=== PATIENT | female | born 1990 | race Native Hawaiian/Other Pacific Islander ===

== ENCOUNTER 2017-09-10 11:25 | Emergency (ER) | payer OTHER ==
[~2017-09-10] VITALS: Ht 167.6 cm; Wt 81.6 kg
[2017-09-10 11:48] LABS: BASOPHILS % (AUTO) 0 % (0-10); EOSINOPHILS # (AUTO) 0.2 10^3/uL (0.0-0.3); EOSINOPHILS % (AUTO) 3 % (0-10); HEMATOCRIT 40 % (35-52); LYMPHOCYTES # (AUTO) 1.9 X 10^3 (1.0-4.0); LYMPHOCYTES % (AUTO) 26 % (12-44); MEAN CORPUSCULAR HEMOGLOBIN 31 PG (25-34); MEAN CORPUSCULAR HGB CONC 35 G/DL (32-36); MEAN CORPUSCULAR VOLUME 88 FL (80-99); MEAN PLATELET VOLUME 10.3 FL (7.4-10.4); MONOCYTES # (AUTO) 0.7 X 10^3 (0.0-1.0); MONOCYTES % (AUTO) 9 % (0-12); NEUTROPHILS # (AUTO) 4.6 X 10^3 (1.8-7.8); NEUTROPHILS % (AUTO) 63 % (42-75); PLATELET COUNT 281 10^3/uL (130-400); RED BLOOD COUNT 4.48 10^6/uL (4.35-5.85); RED CELL DISTRIBUTION WIDTH 13.1 % (10.0-14.5); WHITE BLOOD COUNT 7.3 10^3/uL (4.3-11.0)
--- NOTE | 2017-09-10 12:06 | ED Neurological Problem ---
General Chief Complaint: Neurological Problems Stated Complaint: ELEV BP/CONFUSION LIPS NUMB Nursing Triage Note: PT AMB TO ROOM #10 W/O DIFFICULTY. A&OX4. CO DIZZINESS, SHAKINESS, LETHARGY, HEADACHE, AND TINGLING OF THE LIPS. PT REPORTS SHE WAS AT WORK WHEN SHE BEGAN TO FEEL LIGHT HEADED AND DIZZY. PT REPORTS HER FRIEND CLAIMED SHE HAD JARBLED SPEECH. REPORTS HEADACHE AND UNABLET TO THINK CLEARLY. DENIES LOC AND INJURY. PERRLA. PUPILS 2MM. REPORTS SHE HAS NOT EATEN ANYTHING THIS MORNING AND HAS ONLY DRANK COFFEE FOR FLUIDS. Nursing Sepsis Screen: No Definite Risk Source: patient, family Exam Limitations: no limitations History of Present Illness Date Seen by Provider: Sep 10, 2017 Time Seen by Provider: 11:50 Initial Comments Patient is a 26-year-old female who presents to the emergency room accompanied by significant other routes of dizziness, confusion, headache, and tingling of her lips. She reports that she was at work this morning she started to feel confused, having episodes of blurred vision, and nausea and vomiting. She called her significant other to come take her from work to the emergency room and her significant other reports that she did not appear to be thinking clearly and her words were jumbled. On arrival to the emergency room the only symptoms that she is having is a headache that she describes as a burning feeling. She reports history of headaches but denies any migraine symptoms. She denies chest pain, shortness of breath episodes of anxiety. Associated Symptoms: confusion, nausea/vomiting, paresthesia, vision changes Allergies and Home Medications Patient Home Medication List Home Medication List Reviewed: Yes Review of Systems Constitutional: see HPI; No chills, No diaphoresis, No fever Eyes: See HPI, Blurred Vision Ears, Nose, Mouth, Throat: see HPI (tinkling and lips.) Gastrointestinal: see HPI, nausea, vomiting Psychiatric/Neurological: See HPI, Headache, Weakness All Other Systems Reviewed Negative Unless Noted: Yes Past Lqdfwao-Modsoj-Fulrmn Hx Past Med/Social Hx: Reviewed Nursing Past Med/Soc Hx Patient Social History Alcohol Use: Denies Use Recreational Drug Use: No Smoking Status: Current Everyday Smoker Type Used: Cigarettes 2nd Hand Smoke Exposure: No Recent Foreign Travel: No Contact w/Someone Who Travel: No Recent Infectious Disease Expo: No Recent Hopitalizations: No (DENIES MEDICAL HX.) Physical Abuse: No Sexual Abuse: No Past Medical History Surgeries: No Respiratory: No Cardiac: No Neurological: No Genitourinary: No Gastrointestinal: No Musculoskeletal: No Endocrine: No HEENT: No Cancer: No Psychosocial: No Nursing Suicide Risk Score: 0 Integumentary: No Blood Disorders: No Family Medical History Reviewed Nursing Family Hx Physical Exam Vital Signs Vital Signs - First Documented 09/10/17 11:27 Temp 97.8 Pulse 81 Resp 18 B/P (MAP) 112/81 (91) Pulse Ox 99 O2 Delivery Room Air Capillary Refill : Less Than 3 Seconds Height, Weight, BMI Height: 5'6.00" Weight: 180lbs. oz. 81.210869bp; BMI Method:Stated General Appearance: WD/WN, no apparent distress Neck: non-tender, full range of motion, supple, normal inspection Respiratory: chest non-tender, lungs clear, normal breath sounds, no respiratory distress, no accessory muscle use Cardiovascular: regular rate, rhythm, no edema, no gallop, no JVD, no murmur Gastrointestinal: normal bowel sounds, non tender, soft, no organomegaly, no pulsatile mass Extremities: normal range of motion, non-tender, normal inspection, no pedal edema, no calf tenderness Neurologic/Psychiatric: alert, normal mood/affect, oriented x 3 Crainal Nerves: normal hearing, normal speech, PERRL Coordination/Gait: normal finger to nose, normal gait Motor/Sensory: no motor deficit, no sensory deficit, no pronator drift Skin: normal color, warm/dry stroke scale zero. Progress/Results/Core Measures Results/Orders Lab Results Laboratory Tests Test 09/10/17 11:36 Range/Units White Blood Count 7.3 4.3-11.0 10^3/uL Red Blood Count 4.48 4.35-5.85 10^6/uL Hemoglobin 14.0 11.5-16.0 G/DL Hematocrit 40 35-52 % Mean Corpuscular Volume 88 80-99 FL Mean Corpuscular Hemoglobin 31 25-34 PG Mean Corpuscular Hemoglobin Concent 35 32-36 G/DL Red Cell Distribution Width 13.1 10.0-14.5 % Platelet Count 281 130-400 10^3/uL Mean Platelet Volume 10.3 7.4-10.4 FL Neutrophils (%) (Auto) 63 42-75 % Lymphocytes (%) (Auto) 26 12-44 % Monocytes (%) (Auto) 9 0-12 % Eosinophils (%) (Auto) 3 0-10 % Basophils (%) (Auto) 0 0-10 % Neutrophils # (Auto) 4.6 1.8-7.8 X 10^3 Lymphocytes # (Auto) 1.9 1.0-4.0 X 10^3 Monocytes # (Auto) 0.7 0.0-1.0 X 10^3 Eosinophils # (Auto) 0.2 0.0-0.3 10^3/uL Basophils # (Auto) 0.0 0.0-0.1 10^3/uL D-Dimer 0.30 0.00-0.49 UG/ML Sodium Level 137 135-145 MMOL/L Potassium Level 3.8 3.6-5.0 MMOL/L Chloride Level 107 98-107 MMOL/L Carbon Dioxide Level 22 21-32 MMOL/L Anion Gap 8 5-14 MMOL/L Blood Urea Nitrogen 7 7-18 MG/DL Creatinine 0.75 0.60-1.30 MG/DL Estimat Glomerular Filtration Rate > 60 BUN/Creatinine Ratio 9 Glucose Level 95 70-105 MG/DL Calcium Level 9.5 8.5-10.1 MG/DL Magnesium Level 2.2 1.8-2.4 MG/DL Total Bilirubin 0.9 0.1-1.0 MG/DL Aspartate Amino Transf (AST/SGOT) 17 5-34 U/L Alanine Aminotransferase (ALT/SGPT) 19 0-55 U/L Alkaline Phosphatase 83 40-136 U/L Myoglobin 28.9 10.0-92.0 NG/ML Troponin I < 0.30 <0.30 NG/ML Total Protein 6.9 6.4-8.2 GM/DL Albumin 4.4 3.2-4.5 GM/DL My Orders Orders - JOSE MANZO Cbc With Automated Diff (09/10/17 11:40) Magnesium (09/10/17 11:40) Ekg Tracing (09/10/17 11:40) Cardiac Profile 1 (09/10/17 11:40) Comprehensive Metabolic Panel (09/10/17 11:40) Myoglobin Serum (09/10/17 11:40) O2 (09/10/17 11:40) Monitor-Rhythm Ecg Trace Only (09/10/17 11:40) Saline Lock/Iv-Start (09/10/17 11:40) Fibrin Degradation Products (09/10/17 11:40) Ct Head Wo-R/O Stroke (09/10/17 11:59) Vital Signs/I&O 09/10/17 09/10/17 11:27 13:10 Temp 97.8 97.8 Pulse 81 64 Resp 18 16 B/P (MAP) 112/81 (91) 105/63 Pulse Ox 99 98 O2 Delivery Room Air Room Air Blood Pressure Mean: 91 Progress Progress Note : Time: 12:11 Progress Note I have seen and evaluated the patient at this time. She does not use any hormone replacement or control. She does not complain of calf pain, unilateral leg swelling, shortness of breath. She does smoke 5-6 cigarettes throughout the day. She reports never having a headache like this before. This information leads me to the decision to CT the patient's head. Perc criteria: 0 criteria No need for further workup, as <2% chance of PE. If no criteria are positive and clinicians pre-test probability is <15%, PERC Rule criteria are satisfied. 1257: She is symptom-free at this time, her headache is gone. I believe that the cause of symptoms are from a migraine. She reports that she drinks several energy drinks during the day and is concerned if these could be causing her symptoms. She sees the [facility] in [place], [place]. She agrees with close follow-up, planned discharge, return precautions. Diagnostic Imaging Diagonstic Imaging: CT Plain Films/CT/US/NM/MRI: head Comments VIA [place], [place] NAME: [facility] REC#: [id number] PT STATUS: REG ER : 1990 PHYSICIAN: JOSE MANZO ADMIT DATE: 09/10/17/ER Draft Date of Exam:09/10/17 CT HEAD WO-R/O STROKE INDICATION: Confusion. TECHNIQUE: Axial imaging through the brain was performed without contrast. COMPARISON: No prior studies are available for comparison. FINDINGS: The ventricles and sulci are within normal limits. No sulcal effacement, midline shift, or hemorrhage is detected. The cisterns are patent. The visualized paranasal sinuses are clear. IMPRESSION: No acute intracranial process is detected. The results were called to the Emergency Department prior to this dictation. Dictated on workstation # [id number] Dict: 09/10/17 1235 Trans: 09/10/17 1239 [id number] Interpreted by: ALINE ANDINO MD Electronically signed by: Departure Impression Primary Impression: Migraine Disposition: 01 HOME, SELF-CARE Condition: Stable/Unchanged Departure-Patient Inst. Decision time for Depature: 12:59 Patient Instructions: Migraine Headache (DC) Add. Discharge Instructions: Follow-up with your doctor within 1 week for recheck. Return back to the emergency room should any of your symptoms return or for any other concerns as needed. Refrain from drinking energy drinks as much as possible. All discharge instructions reviewed with patient and/or family. Voiced understanding. Work/School Note: Work Release Form Date Seen in the Emergency Department: Sep 10, 2017 Return to Work: Sep 11, 2017 Restrictions: No Restrictions JOSE MANZO Sep 10, 2017 12:06
[2017-09-10 12:08] LABS: ALANINE AMINOTRANSFERASE 19 U/L (0-55); ALBUMIN 4.4 GM/DL (3.2-4.5); ALKALINE PHOSPHATASE 83 U/L (40-136); BILIRUBIN,TOTAL 0.9 MG/DL (0.1-1.0); BUN/CREATININE RATIO 9; CALCIUM 9.5 MG/DL (8.5-10.1); CARBON DIOXIDE 22 MMOL/L (21-32); CHLORIDE 107 MMOL/L (98-107); CREATININE SERUM 0.75 MG/DL (0.60-1.30); GFR ESTIMATED > 60; GLUCOSE 95 MG/DL (70-105); MAGNESIUM 2.2 MG/DL (1.8-2.4); POTASSIUM 3.8 MMOL/L (3.6-5.0); SODIUM 137 MMOL/L (135-145); TOTAL PROTEIN 6.9 GM/DL (6.4-8.2)
[2017-09-10 12:15] LABS: MYOGLOBIN SERUM 28.9 NG/ML (10.0-92.0)
--- NOTE | 2017-09-10 12:39 | Diagnostic Imaging Report ---
INDICATION: Confusion. TECHNIQUE: Axial imaging through the brain was performed without contrast. COMPARISON: No prior studies are available for comparison. FINDINGS: The ventricles and sulci are within normal limits. No sulcal effacement, midline shift, or hemorrhage is detected. The cisterns are patent. The visualized paranasal sinuses are clear. IMPRESSION: No acute intracranial process is detected. The results were called to the Emergency Department prior to this dictation. Dictated by: Dictated on workstation # [id number]
[2017-09-10 13:10] VITALS: BP 105/63
== END 2017-09-10 13:15 | disposition home or self-care (01) ==
LOC: ER 11:28
DX: G43.909 Migraine, unspecified, not intractable, without status migrainosus (principal); F17.210 Nicotine dependence, cigarettes, uncomplicated
CPT/HCPCS: 36415; 70450; 80053; 83735; 83874; 84484; 85025; 85379; 93005; 93041